=== PATIENT | female | born 1940 | race Asian ===

== ENCOUNTER 2017-09-04 18:39 | Emergency (ER) | payer MEDICARE, MEDICAID ==
[~2017-09-04] VITALS: Ht 149.9 cm; Wt 54.4 kg
[2017-09-04 19:52] VITALS: BP 136/83
[2017-09-04 20:57] VITALS: BP 132/84
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
== END 2017-09-04 20:57 | disposition home or self-care (01) ==
LOC: EDBD 18:39 → EMR 19:20
DX: Z04.1 Encounter for examination and observation following transport accident (principal)
CPT/HCPCS: 99282